=== PATIENT | female | born 1940 | race Caucasian/White ===

== ENCOUNTER 2018-05-30 07:08 | Emergency (ER) | payer MEDICARE, MEDICAID ==
[~2018-05-30] VITALS: Ht 157.5 cm; Wt 69.9 kg
--- OUTSIDE RECORDS SUMMARY | 2018-05-30 07:14 | XMS REPORT | Clinical Summary ---
Author Author Admin, [facility] Organization [facility] Address Unknown Phone Unavailable Allergies, Adverse Reactions, Alerts Allergy Name Reaction Description Start Date Severity Status Provider Allergies Unknown Conditions or Problems Problem Name Problem Code Onset Date Status Entry Date Provider Comment Standard Description Annotate Prolonged QT interval 426.82 Active Krystyna Reyez LPN Long QT syndrome Medication List Medication Instructions Start Date Stop Date Generic Name NDC Status Provider Patient Instruction Drug Treatment Unknown - unknown
--- OUTSIDE RECORDS SUMMARY | 2018-05-30 07:14 | XMS REPORT | Referral Summary ---
Author Author [facility] Organization [facility] Address Unknown Phone Unavailable Encounter VC MARCOS [id number] Date(s): 09/28/17 - 11/15/17 [facility] [address] [place] [address] Discharge Disposition: 01-Home or Self Care Attending Physician: Natahn Multani MD Admitting Physician: Craig Lockhart MD Vital Signs Most recent to 1 oldest [Reference Range]: Temperature Axillary 36.6 degC 1 [35.2-36.7 degC] (11/08/17 12:44 PM) Temperature Oral 36.6 degC [35.8-37.3 degC] (11/15/17 7:50 AM) Temperature Temporal 36.6 degC Artery [36.3-37.8 (10/10/17 11:00 AM) degC] Peripheral Pulse 96 bpm Rate [60-100 bpm] (11/15/17 7:50 AM) Heart Rate Monitored 94 bpm [60-100 bpm] (11/13/17 8:17 AM) Respiratory Rate 18 br/min [14-20 br/min] (11/15/17 7:50 AM) Blood Pressure 134/74 mmHg [90-140/60-90 mmHg] (11/15/17 7:50 AM) Mean Arterial 101 mmHg Pressure, Cuff (11/06/17 7:37 PM) SpO2 98 % (11/15/17 7:50 AM) Remote Telemetry Ongoing (11/11/17 4:46 AM) 1Result Comment: pt. eating ice Problem List Condition Effective Dates Status Health Status Informant Acute Active pain(Confirmed) Alteration in Active nutrition(Confirmed) 1 At risk for Active infection(Confirmed) 2 At risk of pressure Active sore(Confirmed) Bleeding Active precautions(Confirme d)3 Fluid Active imbalance(Confirmed) 4 Impaired gas Active exchange(Confirmed)5 No Chronic Problems Active Tissue perfusion Active alteration(Confirmed )6 1Problem added automatically by system based on initiation of Alteration in Nutrition Plan of Care 2Problem added automatically by system based on initiation of At Risk for Infection in Nutrition Plan of Care 3Problem added automatically by system based on initiation of Bleeding Precautions Plan of Care 4Problem added automatically by system based on initiation of Fluid Volume Imbalance Plan of Care 5Problem added automatically by system based on initiation of Impaired Gas Exchange Plan of Care 6Problem added automatically by system based on initiation of Tissue Perfusion Cerebral Plan of Care Allergies, Adverse Reactions, Alerts Substance Reaction Severity Status penicillin Hives Medium Active Medications enoxaparin 100 mg/mL injectable solution 80 mg, SubCutaneous, q12hr, # 10 Each, 0 Refill(s), Pharmacy: [facility], 80 mg SubCutaneous q12hr Start Date: 11/15/17 Stop Date: 12/16/17 Status: Ordered hydroCHLOROthiazide 12.5 mg oral capsule 12.5 mg 1 caps, Oral, Daily, 0 Refill(s) Start Date: 09/28/17 Status: Ordered Lasix 20 mg oral tablet 20 mg 1 tabs, Oral, Daily, # 30 tabs, 0 Refill(s), Pharmacy: [facility] , 1 tabs Oral Daily Start Date: 11/15/17 Status: Ordered losartan 50 mg oral tablet 50 mg 1 tabs, Oral, Daily, # 30 tabs, 0 Refill(s), Pharmacy: [facility] , 1 tabs Oral Daily Start Date: 11/15/17 Status: Ordered Metoprolol Succinate ER 50 mg oral tablet, extended release 50 mg 1 tabs, Oral, Daily, 0 Refill(s) Start Date: 09/28/17 Status: Ordered simvastatin 20 mg oral tablet 20 mg 1 tabs, Oral, Bedtime (once a day), 0 Refill(s) Start Date: 09/28/17 Status: Ordered warfarin 5 mg oral tablet 5 mg 1 tabs, Oral, Daily, # 30 tabs, 0 Refill(s), Pharmacy: [facility] , 1 tabs Oral Daily Start Date: 11/15/17 Status: Ordered Results Hematology Most recent to 1 oldest [Reference Range]: WBC [4.8-10.8 1.8 10*3/uL 10*3/uL] *LOW* (11/15/17 5:11 AM) RBC [4.00-5.20] 2.71 *LOW* (11/15/17 5:11 AM) Hgb [12.0-16.0 8.7 gm/dL gm/dL] *LOW* (11/15/17 5:11 AM) Hct [37.0-47.0 %] 26.7 % *LOW* (11/15/17 5:11 AM) MCV [82.0-99.0 fL] 98.5 fL (11/15/17 5:11 AM) MCH [27.0-32.0 pg] 32.1 pg *HI* (11/15/17 5:11 AM) MCHC [32.0-36.0 32.6 gm/dL gm/dL] (11/15/17 5:11 AM) RDW [11.5-14.5 %] 26.9 % *HI* (11/15/17 5:11 AM) Platelet [150-400 163 10*3/uL 10*3/uL] (11/15/17 5:11 AM) MPV [9.4-12.4 fL] 10.5 fL (11/15/17 5:11 AM) Immature 0.0 % Granulocytes (11/08/17 5:00 AM) [0.0-1.0 %] Neutrophils [51-75 58 % %] (11/15/17 5:11 AM) Band Man [0-8 %] 6 % (11/13/17 4:48 AM) Industry Man [0-1 %] 1 % (11/12/17 3:55 AM) Myelo Man [-1-0 %] 1 % *HI* (11/15/17 5:11 AM) Promyelo Man [-1-0 1 % %] *HI* (10/10/17 3:51 AM) Lymphocytes [20-46 25 % %] (11/15/17 5:11 AM) Abn Lymph Man 1 % (11/15/17 5:11 AM) Monocytes [4-11 %] 14 % *HI* (11/15/17 5:11 AM) Eosinophils [0-4 %] 2 % (11/15/17 5:11 AM) Basophils [0-2 %] 1 % (11/15/17 5:11 AM) Blasts Man [0-0 %] 1 % 1 *CRIT* (10/14/17 4:11 AM) Neutro Absolute 1.04 [1.90-7.00] *LOW* (11/15/17 5:11 AM) Lymph Absolute 0.47 [0.80-3.30] *LOW* (11/15/17 5:11 AM) Callaway Absolute 0.25 [0.30-1.00] *LOW* (11/15/17 5:11 AM) Eos Absolute 0.04 [0.00-0.50] (11/15/17 5:11 AM) Baso Absolute 0.01 [0.00-0.20] (11/15/17 5:11 AM) Jeaneth Rods Present *ABN* (10/02/17 5:24 AM) Hypochrom Occasional *ABN* (10/22/17 4:37 AM) Polychrom Occasional *ABN* (11/15/17 5:11 AM) Ovalocytes Occasional *ABN* (11/08/17 5:00 AM) Schistocyte Occasional *ABN* (11/02/17 3:37 AM) Nucleated RBC 0.0 /100 WBC Automated [0 /100 (11/15/17 5:11 AM) WBC] Differential Reviewed (11/15/17 5:11 AM) 1Result Comment: Critical Blast result previously reported to floor. 10/14/2017 07:04 Coagulation Most recent to 1 oldest [Reference Range]: INR [0.9-1.2] 1.5 *HI* (11/15/17 5:11 AM) PTT [25.0-35.0 34.9 seconds seconds] (11/12/17 3:55 AM) Fibrinogen Lvl 279 mg/dL [187-520 mg/dL] (11/12/17 3:55 AM) D-Dimer [0-600 1267 ng{FEU}/mL 1 ng{FEU}/mL] *HI* (11/12/17 3:55 AM) 1Result Comment: A D Dimer result of <500 ng/mL FEU has a negative predictive value of approximately 100% for the exclusion of DVT and acute PE. Chemistry Most recent to 1 oldest [Reference Range]: Sodium Lvl [136-144 140 mEq/L mEq/L] (11/15/17 5:11 AM) Potassium Lvl 3.5 mEq/L [3.6-5.1 mEq/L] *LOW* (11/15/17 5:11 AM) Chloride [99-109 105 mEq/L mEq/L] (11/15/17 5:11 AM) CO2 [22-32 mEq/L] 27 mEq/L (11/15/17 5:11 AM) AGAP [3-20 mEq/L] 8 mEq/L (11/15/17 5:11 AM) BUN [4-20 mg/dL] 14 mg/dL (11/15/17 5:11 AM) Glucose Lvl [70-100 114 mg/dL mg/dL] *HI* (11/15/17 5:11 AM) Creatinine Lvl 0.68 mg/dL [0.44-1.03 mg/dL] (11/15/17 5:11 AM) eGFR [>60 mL/min] >60 mL/min 1 (11/15/17 5:11 AM) Calcium Lvl 8.7 mg/dL [8.6-10.0 mg/dL] (11/15/17 5:11 AM) Albumin Lvl [3.5-4.8 3.1 gm/dL gm/dL] *LOW* (11/15/17 5:11 AM) Total Protein 5.5 gm/dL [6.1-7.9 gm/dL] *LOW* (11/15/17 5:11 AM) Globulin [1.9-4.3 2.4 gm/dL gm/dL] (11/15/17 5:11 AM) ALT [14-54 U/L] 70 U/L *HI* (11/15/17 5:11 AM) AST [15-41 U/L] 55 U/L *HI* (11/15/17 5:11 AM) Alk Phos [26-104 168 U/L U/L] *HI* (11/15/17 5:11 AM) Bili Total [0.2-1.2 1.3 mg/dL 2 mg/dL] *HI* (11/15/17 5:11 AM) LDH [98-192 U/L] 279 U/L *HI* (11/01/17 4:05 AM) Magnesium Lvl 1.8 mg/dL [1.8-2.5 mg/dL] (11/12/17 3:55 AM) Uric Acid [2.6-8.0 3.2 mg/dL mg/dL] (10/21/17 4:29 AM) Phosphorus [2.4-4.7 3.4 mg/dL 3 mg/dL] (10/25/17 3:29 AM) BNP [0-99 pg/mL] 2536 pg/mL *HI* (10/10/17 10:16 AM) Troponin [<0.06 0.10 ng/mL 4 ng/mL] *HHI* (10/08/17 1:50 PM) Lipase Lvl [8-48 79 U/L U/L] *HI* (10/16/17 3:55 AM) Lactic Acid Lvl 1.0 mEq/L [0.5-2.0 mEq/L] (10/15/17 9:14 AM) Chol [0-199 mg/dL] 174 mg/dL (10/08/17 5:58 AM) Trig [0-149 mg/dL] 72 mg/dL (10/08/17 5:58 AM) HDL [40-84 mg/dL] 75 mg/dL (10/08/17 5:58 AM) LDL [0-130 mg/dL] 85 mg/dL (10/08/17 5:58 AM) VLDL Cholesterol 14 mg/dL [0-28 mg/dL] (10/08/17 5:58 AM) Cardiac Risk 2.3 [0.0-5.0] (10/08/17 5:58 AM) Procalcitonin 0.19 ng/mL 5 [0.00-0.09 ng/mL] *HI* (10/10/17 10:16 AM) 1Result Comment: Multiply eGFR results by 1.21 for race. 2Result Comment: Naproxen, specifically the metabolite O-desmethylnaproxen, may cause spurious elevation in Total Bilirubin levels. 3Result Comment: High dosages of liposomal Amphotericin B (AmBisome) therapy or other drug preparations that use a liposomal envelope to facilitate drug delivery may cause falsely elevated results for phosphorus. 4Result Comment: Critical value called, and read-back verified. Called to Jaison Aguilar 10/08/2017 15:22 5Result Comment: Normal: <0.1 ng/mL (infants >72 hrs - adults) Suspected Lower Respiratory Tract Infection 0.10-0.25 ng/mL=Low likelihood for bacterial infection; Antibiotics discouraged. >0.25 ng/mL=Increased likelihood for bacterial infection; Antibiotics encouraged. Suspected Sepsis: Strongly consider initiating antibiotics in all unstable patients. 0.10-0.50 ng/mL=Low likelihood for sepsis; Antibiotics discouraged. >0.50 ng/mL=Increased likelihood for sepsis; Antibiotics encouraged. Decisions on antibiotic use should not be based solely on procalcitonin levels. If antibiotics are administered, repeat procalcitonin testing should be obtained every 2-3 days to consider early antibiotic cessation. PCT is a dynamic biomarker and most useful when trends are analyzed over time in accompaniment with other clinical data. Interpretation should be based upon clinical context and algorithms. Urinalysis Most recent to 1 oldest [Reference Range]: UA Color Yellow (09/29/17 4:42 AM) UA Appear Sl Cloudy (09/29/17 4:42 AM) UA pH [5.0-8.0] 5.0 (09/29/17 4:42 AM) UA Leuk Est Pos 1+ [Negative] *ABN* (09/29/17 4:42 AM) UA Nitrite Negative [Negative] (09/29/17 4:42 AM) UA Protein Negative [Negative] (09/29/17 4:42 AM) UA Glucose Negative [Negative] (09/29/17 4:42 AM) UA Ketones Negative [Negative] (09/29/17 4:42 AM) UA Urobilinogen Negative [<1.0] (09/29/17 4:42 AM) UA Bili [Negative] Negative (09/29/17 4:42 AM) UA Blood [Negative] Pos 1+ *ABN* (09/29/17 4:42 AM) UA Spec Grav 1.010 [1.003-1.030] (09/29/17 4:42 AM) Type Lopez (09/29/17 4:42 AM) UA WBC [0-4] 5-10 *ABN* (09/29/17 4:42 AM) UA RBC [0-2] 2-5 (09/29/17 4:42 AM) Epithelial Cells 2-5 (09/29/17 4:42 AM) UA Bacteria Rare (09/29/17 4:42 AM) UA Hyal Cast [0-3] 1-3 (09/29/17 4:42 AM) UA Mucous Present (09/29/17 4:42 AM) U Eos [0-0 %] 0 % (09/29/17 3:50 PM) Blood Bank Results Most recent to 1 oldest [Reference Range]: ABO/Rh O POS (11/08/17 8:55 AM) Antibody Screen Tube NEG (11/08/17 8:55 AM) Transfusion Data Most recent to 1 oldest [Reference Range]: Cryoprecipitate 138 mL Volume Transfused (10/04/17 3:16 PM) Platelets Volume 300 mL Transfused (10/30/17 9:00 AM) Red Blood Cells 274 mL Volume Transfused (11/08/17 1:00 PM) Microbiology Reports TEST: Blood Culture STATUS: Auth (Verified) BODY SITE: SOURCE: Blood COLLECTED DATE/TIME: 10/10/17 10:15 AM Blood Culture No growth after 5 days of incubation. TEST: Blood Culture STATUS: Auth (Verified) BODY SITE: SOURCE: Blood COLLECTED DATE/TIME: 10/10/17 9:45 AM Blood Culture No growth after 5 days of incubation. Immunizations No data available for this section Procedures Procedure Date Related Diagnosis Body Site Status Declotting by thrombolytic agent of implanted 11/12/17 Completed vascular access device or catheter Declotting by thrombolytic agent of implanted 10/05/17 Completed vascular access device or catheter Insertion of peripherally inserted central 09/29/17 Completed venous catheter (PICC), without subcutaneous port or pump; age 5 years or older.. Heart valve replacement Completed Hysterectomy Completed Social History Social History Type Response Smoking Status Former smoker, quit more than 30 days ago; Type: Cigarettes entered on: 09/28/17 Assessment and Plan No data available for this section
--- NOTE | 2018-05-30 07:23 | ED Neurological Problem ---
General Stated Complaint: RT ARM PAIN and weakness Source: patient, family History of Present Illness Date Seen by Provider: May 30, 2018 Time Seen by Provider: 07:11 Severity: moderate Patient woke up at 3 AM and her usual state of health, around 5 AM she noticed difficulty moving her right arm, pain in her right arm, and when she called EMS for help around that time had some difficulty with speech and word finding. She states she's had prior pain in the right shoulder, that has been intermittent and denies any injury or fall. She is on warfarin for a mechanical aortic valve. She has a history of leukemia, and is currently on chemotherapy. Allergies and Home Medications Allergies Coded Allergies: Penicillins (Verified Allergy, Severe, HIVES, 05/30/18) Patient Home Medication List Home Medication List Reviewed: Yes Review of Systems Review of Systems Constitutional: No chills, No dizziness, No fever Eyes: Denies Blindness, Denies Blurred Vision Respiratory: No cough, No short of breath Cardiovascular: No chest pain, No palpitations, No syncope Gastrointestinal: No abdominal pain, No nausea Musculoskeletal: joint pain, muscle weakness Skin: No change in color, No rash Psychiatric/Neurological: See HPI; Denies Headache Hematologic/Lymphatic: See HPI Past Ddwstph-Ddxtva-Mhgamh Hx Past Med/Social Hx: Reviewed and Corrections made Patient Social History Recent Foreign Travel: No Contact w/Someone Who Travel: No Past Medical History Valve Replacement (Aortic valve) Physical Exam Vital Signs Vital Signs - First Documented 05/30/18 07:08 Temp 97.0 Pulse 75 Resp 16 B/P (MAP) 216/75 (122) Pulse Ox 100 O2 Delivery Room Air Capillary Refill : Height, Weight, BMI Height: '" Weight: lbs. oz. kg; BMI Method: General Appearance: mild distress (in pain) HEENT: PERRL/EOMI, normal ENT inspection, TMs normal, pharynx normal Neck: non-tender, normal inspection Respiratory: lungs clear, normal breath sounds, no respiratory distress, no accessory muscle use Cardiovascular: regular rate, rhythm, no edema, no gallop, no JVD, systolic murmur (Mechanical murmur) Gastrointestinal: normal bowel sounds, non tender, soft, no organomegaly, no pulsatile mass Back: no CVA tenderness, no vertebral tenderness Extremities: normal inspection, no pedal edema, no calf tenderness, normal capillary refill, other (Right shoulder pain to palpation. Decreased active and passive range of motion of the right shoulder) Neurologic/Psychiatric: enrollment manager II-XII nml as tested, alert, motor weakness ( Positive right arm weakness in the right shoulder, elbow, and hand/bus transportation manager strength. + word finding difficulty), other (Oriented to name, date, circumstances, uncertain of the year. Normal sensation throughout) Motor/Sensory: pronator drift (R) (And upper extremity); No sensory deficit; weak motor strength RUE Skin: normal color, warm/dry Stroke Onset of Symptoms Date of Onset of Symptoms: May 30, 2018 Time of Symptom Onset: 05:00 NIH Stroke Scale Assessment Select: Initial Level of Consciousness: 0=Alert (0), Level of Consciousness- Questions: 0=Answers both month/age (0), LOC Commands: 0=Performs both tasks (0) , Gaze: Normal (0), Visual Gill: 0=No visual loss (0), Facial Movement ( Facial Paresis): 0=Normal symmetrical mnt (0), Motor Function-Arms Right: 3=No effort/gravity (3), Motor Function-Arms Left: 0=No drift (0), Motor Function- Legs Right: 0=No drift (0), Motor Function-Legs Left: 0=No drift (0), Limb Ataxia: 0=Absent (0), Sensory: 0=Normal:no loss (0), Best Language: 1=Mild to moderat aphasia (1), Dysarthria: 1=Mild to moderate loss (1), Extinction & Inattention: 0=No abnormality (0), Total: 5 Stroke Thrombolytic Exclusion Oral Anticoagulants: Yes (Warfarin) TPA Contraindication: Yes IV - TPa Received IV - TPa Procedure Performed?: No Progress/Results/Core Measures Results/Orders Lab Results Laboratory Tests Test 05/30/18 07:15 Range/Units White Blood Count 6.6 4.3-11.0 10^3/uL Red Blood Count 3.81 L 4.35-5.85 10^6/uL Hemoglobin 12.6 11.5-16.0 G/DL Hematocrit 37 35-52 % Mean Corpuscular Volume 97 80-99 FL Mean Corpuscular Hemoglobin 33 25-34 PG Mean Corpuscular Hemoglobin Concent 34 32-36 G/DL Red Cell Distribution Width 12.1 10.0-14.5 % Platelet Count 288 130-400 10^3/uL Mean Platelet Volume 9.7 7.4-10.4 FL Neutrophils (%) (Auto) 73 42-75 % Lymphocytes (%) (Auto) 19 12-44 % Monocytes (%) (Auto) 7 0-12 % Eosinophils (%) (Auto) 1 0-10 % Basophils (%) (Auto) 1 0-10 % Neutrophils # (Auto) 4.8 1.8-7.8 X 10^3 Lymphocytes # (Auto) 1.2 1.0-4.0 X 10^3 Monocytes # (Auto) 0.4 0.0-1.0 X 10^3 Eosinophils # (Auto) 0.1 0.0-0.3 10^3/uL Basophils # (Auto) 0.0 0.0-0.1 10^3/uL Prothrombin Time 28.5 H 12.2-14.7 SEC INR Comment 2.7 H 0.8-1.4 Activated Partial Thromboplast Time 57 H 24-35 SEC D-Dimer 0.73 H 0.00-0.49 UG/ML Sodium Level 136 135-145 MMOL/L Potassium Level 3.1 L 3.6-5.0 MMOL/L Chloride Level 96 L 98-107 MMOL/L Carbon Dioxide Level 10 L 21-32 MMOL/L Anion Gap 30 H 5-14 MMOL/L Blood Urea Nitrogen 22 H 7-18 MG/DL Creatinine 0.83 0.60-1.30 MG/DL Estimat Glomerular Filtration Rate > 60 BUN/Creatinine Ratio 27 Glucose Level 145 H 70-105 MG/DL Calcium Level 9.7 8.5-10.1 MG/DL Corrected Calcium 9.7 8.5-10.1 MG/DL Total Bilirubin 0.5 0.1-1.0 MG/DL Aspartate Amino Transf (AST/SGOT) 26 5-34 U/L Alanine Aminotransferase (ALT/SGPT) 14 0-55 U/L Alkaline Phosphatase 124 40-136 U/L Troponin T 19 H <=10 NG/L Total Protein 6.8 6.4-8.2 GM/DL Albumin 4.0 3.2-4.5 GM/DL My Orders Orders - NEGRITO FLORES MD Cbc With Automated Diff (05/30/18 07:18) Protime With Inr (05/30/18 07:18) Partial Thromboplastin Time (05/30/18 07:18) Comprehensive Metabolic Panel (05/30/18 07:18) Fibrin Degradation Products (05/30/18 07:18) Ua Culture If Indicated (05/30/18 07:18) Chest 1 View Ap/Pa Only (05/30/18 07:18) Ekg Tracing (05/30/18 07:18) Nothing By Mouth (05/30/18 Lunch) Accucheck Stat ONCE (05/30/18 07:18) Saline Lock/Iv-Start (05/30/18 07:18) Saline Lock/Iv-Start (05/30/18 07:18) Vital Signs Stroke Patient Q15M (05/30/18 07:18) Ct Head Wo-R/O Stroke (05/30/18 07:18) O2 (05/30/18 07:18) Intake & Output 06,14,22 (05/30/18 07:18) Labetalol Injection (Normodyne Injection (05/30/18 07:30) Monitor-Rhythm Ecg Trace Only (05/30/18 07:18) Dysphagia Screening Tool (05/30/18 07:18) Lipid Panel (05/31/18 06:00) Fentanyl Injection (Sublimaze Injection (05/30/18 07:30) Shoulder 3 View Right (05/30/18 07:30) Morphine Injection (Morphine Injection (05/30/18 08:03) Morphine Injection (Morphine Injection (05/30/18 08:08) Labetalol Injection (Normodyne Injection (05/30/18 08:30) Morphine Injection (Morphine Injection (05/30/18 08:27) Medications Given in ED Current Medications Medications Dose Ordered Sig/Joseph Route Start Time Stop Time Status Last Admin Dose Admin Fentanyl Citrate 25 mcg Q1H PRN IVP 05/30/18 07:30 05/30/18 08:05 DC 05/30/18 07:28 25 MCG Labetalol HCl 10 mg PRN PRN IV 05/30/18 07:30 05/30/18 07:58 10 MG Labetalol HCl 20 mg ONCE ONCE IV 05/30/18 08:30 05/30/18 08:31 DC 05/30/18 08:40 20 MG Vital Signs/I&O 05/30/18 07:08 Temp 97.0 Pulse 75 Resp 16 B/P (MAP) 216/75 (122) Pulse Ox 100 O2 Delivery Room Air Initial ECG Impression Date: May 30, 2018 Initial ECG Impression Time: 08:09 Initial ECG Rate: 70 Initial ECG Rhythm: S.Mazin (With first-degree AV block) Initial ECG Intervals: ME (Prolonged 184 ms) Initial ECG Impression: Sinus Bradycardia, 1st Degree AV Block Initial ECG Comparisson: No Previous ECG Available Comment Left axis deviation, poor R to R progression Diagnostic Imaging Diagonstic Imaging: Xray Plain Films/CT/US/NM/MRI: chest Comments Chest x-ray dated 07/16/18 0731 hrs. prior sternotomy mechanical aortic valve right-sided port no obvious infiltrates no acute process. Reviewed: Reviewed by Me Diagonstic Imaging: Xray Plain Films/CT/US/NM/MRI: other (Right shoulder) Comments possible subluxation vs psuedosubluxation, lucency in glenoid rim may be occult fx, recommend CT for further eval. No lytic or blastic lesions. Reviewed: Reviewed/Discussed CVA/SNYCOPE: ECG, Tpa Considered (Excluded due to warfarin) Critical Care Note Critical Care Total Time (minutes) 60 Progress Critical care time spent by me at the bedside evaluating NIH, directing care, review of EKG review of images, discussion with accepting physician. Ms. Gordon is a constant risk for deterioration of condition including permanent disability and/or from possible acute ischemic CVA. She is on warfarin and is not a candidate for TPA due to this. Her last known well was 5 AM, she has some exam findings concerning for left MCA distribution ischemic stroke. I discussed her care with Dr. Jeffrey at [facility] recommends transfer to the [facility] for CT angiogram perfusion brain and further evaluation, okay to keep blood pressure between 180 and 220. Departure Impression Primary Impression: Cerebrovascular accident due to cerebral artery occlusion Disposition: XFER SHT-TRM HOSP Condition: Unchanged Transfer Time Spoke to Accepting Phy: 08:45 Transfer Progress Notes Discussed with Dr. Santana the transferring physician and Dr. Jeffrey the neurologist at [facility]. Patient is accepted to the [facility] emergency department, where she will undergo further assessment. Okay to keep blood pressure 180-220 Transfer Facility: [facility] ([facility]) Method of Transfer: Air Departure-Patient Inst. Referrals: JAZLYN HERNÁNDEZ MD (PCP/Family) Primary Care Physician NEGRITO FLORES MD May 30, 2018 07:23
[2018-05-30 07:29] LABS: HEMATOCRIT 37 % (35-52); HEMOGLOBIN 12.6 G/DL (11.5-16.0); MEAN CORPUSCULAR HEMOGLOBIN 33 PG (25-34); MEAN CORPUSCULAR HGB CONC 34 G/DL (32-36); MEAN CORPUSCULAR VOLUME 97 FL (80-99); WHITE BLOOD COUNT 6.6 10^3/uL (4.3-11.0)
[2018-05-30 07:30] LABS: BASOPHILS % (AUTO) 1 % (0-10); EOSINOPHILS # (AUTO) 0.1 10^3/uL (0.0-0.3); EOSINOPHILS % (AUTO) 1 % (0-10); LYMPHOCYTES # (AUTO) 1.2 X 10^3 (1.0-4.0); LYMPHOCYTES % (AUTO) 19 % (12-44); MEAN PLATELET VOLUME 9.7 FL (7.4-10.4); MONOCYTES # (AUTO) 0.4 X 10^3 (0.0-1.0); MONOCYTES % (AUTO) 7 % (0-12); NEUTROPHILS # (AUTO) 4.8 X 10^3 (1.8-7.8); NEUTROPHILS % (AUTO) 73 % (42-75); PLATELET COUNT 288 10^3/uL (130-400); RED CELL DISTRIBUTION WIDTH 12.1 % (10.0-14.5)
[2018-05-30] MEDS ORDERED: fentaNYL INJECTION 100 MCG/2 ML AMP IVP PRN (07:30)
[2018-05-30] MEDS ORDERED: LABETALOL HCL 20 MG/4 ML VIAL IV PRN (07:30)
[2018-05-30] MEDS ORDERED: WARF1TAB82 (07:40)
[2018-05-30] MEDS ORDERED: SIMV20TA3 (07:40)
[2018-05-30] MEDS ORDERED: FURO20TA4 (07:40)
[2018-05-30] MEDS ORDERED: TRET10CA2 (07:40)
[2018-05-30] MEDS ORDERED: LOSA100T57 (07:40)
[2018-05-30 07:48] LABS: ALANINE AMINOTRANSFERASE 14 U/L (0-55); ALKALINE PHOSPHATASE 124 U/L (40-136); BILIRUBIN,TOTAL 0.5 MG/DL (0.1-1.0); BUN/CREATININE RATIO 27; CALCIUM 9.7 MG/DL (8.5-10.1); CARBON DIOXIDE 10 MMOL/L (21-32); CHLORIDE 96 MMOL/L (98-107); CREATININE SERUM 0.83 MG/DL (0.60-1.30); GFR ESTIMATED > 60; GLUCOSE 145 MG/DL (70-105); POTASSIUM 3.1 MMOL/L (3.6-5.0); SODIUM 136 MMOL/L (135-145); TOTAL PROTEIN 6.8 GM/DL (6.4-8.2)
[2018-05-30 07:51] LABS: PROTHROMBIN TIME PATIENT 28.5 SEC (12.2-14.7)
[2018-05-30 07:52] LABS: FIBRIN DEGRADATION PRODUCTS 0.73 UG/ML (0.00-0.49); INR 2.7 (0.8-1.4)
[2018-05-30] MEDS ORDERED: morphine INJ 10 MG/ML 1ML (SYR OR VIAL) IVP STA ×2 (08:03→08:27)
[2018-05-30] MEDS ORDERED: morphine INJ 10 MG/ML 1ML (SYR OR VIAL) ONE (08:08)
--- NOTE | 2018-05-30 08:25 | NUR ---
DR IN ROOM WITH PT AT THIS TIME.
[2018-05-30] MEDS ORDERED: LABETALOL HCL 20 MG/4 ML VIAL IV ONE (08:30)
--- NOTE | 2018-05-30 08:34 | NUR ---
CHESTER PLACED ON STANDBY BY Brenden CANTRELL
--- NOTE | 2018-05-30 08:34 | Diagnostic Imaging Report ---
CLINICAL INDICATION: Patient with shoulder pain started out of nowhere this morning. Rule out stroke. EXAM: Axial CT scan of brain performed without IV contrast. COMPARISON: None. FINDINGS: There is no evidence of acute cerebral infarct, intracranial hemorrhage, or gross mass effect. The brain parenchymal volume appears appropriate for patient's age. There is mild focal and patchy areas of low-attenuation white matter changes involving both cerebral hemispheres, likely representing chronic small vessel ischemic disease and mild leukoaraiosis. There are small focal calcifications scattered about both cerebral hemispheres which may be from remote infectious or inflammatory process. There is normal ponce-white matter distinction. There is no significant midline shift or herniation. There is no evidence of hydrocephalus. The basal cisterns are unremarkable. The skull, extracranial soft tissue, and orbits are unremarkable. The paranasal sinuses are unremarkable. Temporal bones show no significant abnormality. IMPRESSION: 1: There is no radiographic evidence of acute cardiopulmonary process. If there is continued concern for acute cerebral infarct, then MRI of the brain would better evaluate. 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 Results of this report was discussed with Dr. Sergey Alvarenga via the telephone on 05/30/2018 at 0820 hours. Dictated by: Dictated on workstation # [id number]
--- NOTE | 2018-05-30 08:34 | NUR ---
MED FLIGHT PUT ON STANDBY.
--- NOTE | 2018-05-30 08:39 | Diagnostic Imaging Report ---
CLINICAL INDICATION: Patient playing card game this morning and shoulder started hurting. EXAM: Portable chest x-ray, upright view. COMPARISON: Portable chest x-ray dated 10/12/2017. X-ray of the right shoulder dated 05/30/2018. FINDINGS: There is interval inferior displacement of the right humeral head in relationship to the glenoid of unknown etiology. There are degenerative spurs involving the thoracic spine. The lungs are clear and stable compared to the prior study. There is no pleural effusion or pneumothorax. The pulmonary vasculature and cardiac silhouette are within normal limits. Again seen are postop changes with sternotomy wires and valvuloplasty changes seen. Interval placement of a central line overlying the right chest with the tip in the mid to distal superior vena cava. The previously seen right PICC line has been removed. IMPRESSION: 1. There is interval inferior displacement of the right humeral head in relationship to the glenoid. This may be related to subluxation or dislocation of the right glenohumeral joint or a right joint effusion. 2. Interval removal of the previously seen right PICC line with placement of a right central line. 3. The remainder of the chest x-ray exam is stable with no evidence of an acute cardiopulmonary process. 4. The results of this report were discussed with Dr. Sergey Alvarenga via the telephone on 05/30/2018 at 0830 hours. Dictated by: Dictated on workstation # [id number]
--- NOTE | 2018-05-30 08:45 | NUR ---
MED FLIGHT STANDBY CANCELLED
--- NOTE | 2018-05-30 08:51 | NUR ---
[facility] CONTACTED TO HAVE LAUNCHED.
--- NOTE | 2018-05-30 09:00 | NUR ---
UPON TELLING PT SHE WAS GOING BY [facility] SHE STATES SHE WAS HAVING CHEST PRESSURE. DR FLORES NOTIFIED.
--- NOTE | 2018-05-30 09:12 | NUR ---
PT STATES BY LOWERING HER BED IT MADE THE PAIN IN HER CHEST SLIGHTLY BETTER.
--- NOTE | 2018-05-30 09:14 | NUR ---
[facility] CALLED BACK ET STATES THEY WILL BE HERE IN 25 MINUTES. NOTIFIED.
[2018-05-30 09:15] LABS: BILIRUBIN,URINE NEGATIVE (NEGATIVE); CLARITY,URINE CLEAR; COLOR,URINE YELLOW; GLUCOSE, URINE (UA) NEGATIVE (NEGATIVE); KETONES,URINE NEGATIVE (NEGATIVE); LEUKOCYTE ESTERASE ,URINE NEGATIVE (NEGATIVE); NITRITE,URINE NEGATIVE (NEGATIVE); PROTEIN,URINE NEGATIVE (NEGATIVE); UROBILINOGEN,URINE 0.2 MG/DL (NORMAL)
[2018-05-30 09:16] LABS: SQUAMOUS EPITHELIAL CELL,UR 0-2 /HPF
--- NOTE | 2018-05-30 09:22 | Diagnostic Imaging Report ---
Clinical indication: Patient with shoulder pain. No known injury. Exam: X-ray of the right shoulder, 3 views including scapular Y view. Comparison: Chest x-ray dated 10/12/2017. Findings: There is interval inferior subluxation of the right humeral head in relation to the right glenoid which shows no significant displacement anteriorly or posteriorly. There is also an area of irregular calcification seen lateral to the region of the glenoid on the AP view which may represent a fracture fragment versus excrescent calcification. There are degenerative spurs involving the proximal humeral head/neck junction region. There is moderately hypertrophic subacromial spurs and degenerative spurring of the right acromioclavicular joint. There is degenerative spurs involving the thoracic spine. Partially visualized central line and sternotomy wires are seen. Impression: 1: There is interval inferior position of the right humeral head in relation to the glenoid with no significant humeral head displacement anteriorly or posteriorly. This may represent subluxation of the glenohumeral joint versus pseudosubluxation from a joint effusion. 2: There is a calcification seen lateral to the right glenoid on the AP view. This may represent a fracture fragment or bony excrescence. CT scan of the right shoulder is suggested for further evaluation. 3: Degenerative disease of the right shoulder. Results of this report were discussed with Dr. Sergey Alvarenga via the telephone on 05/30/2018 at 0830 hrs. Dictated by: Dictated on workstation # [id number]
--- NOTE | 2018-05-30 09:48 | NUR ---
[facility] HERE.
[2018-05-30 10:00] VITALS: BP 212/91
== END 2018-05-30 10:00 | disposition short-term general hospital (02) ==
LOC: EDUNIT# 07:08 → ER FS 07:10
DX: I63.50 Cerebral infarction due to unspecified occlusion or stenosis of unspecified cerebral artery (principal); C95.00 Acute leukemia of unspecified cell type not having achieved remission; Z88.0 Allergy status to penicillin; Z92.21 Personal history of antineoplastic chemotherapy; Z95.2 Presence of prosthetic heart valve
CPT/HCPCS: 36415; 70450; 71045; 73030; 80053; 81000; 84484; 85025; 85379; 85610; 85730; 93005; 93041

== ENCOUNTER → 2018-08-18 | Outpatient (CLI) | payer MEDICARE, MEDICAID ==
[~2018-08-18] MED LIST: FURO20TA4; LOSA100T57; SIMV20TA3; TRET10CA2; WARF1TAB82
[2018-08-18 11:14] LABS: HEMATOCRIT 35 % (35-52); HEMOGLOBIN 11.6 G/DL (11.5-16.0); MEAN CORPUSCULAR HEMOGLOBIN 32 PG (25-34); MEAN CORPUSCULAR HGB CONC 33 G/DL (32-36); MEAN CORPUSCULAR VOLUME 99 FL (80-99); PLATELET COUNT 191 10^3/uL (130-400); PROTHROMBIN TIME PATIENT 23.7 SEC (12.2-14.7); WHITE BLOOD COUNT 4.6 10^3/uL (4.3-11.0)
[2018-08-18 11:15] LABS: MEAN PLATELET VOLUME 10.1 FL (7.4-10.4)
[2018-08-18 11:16] LABS: BASOPHILS % (AUTO) 0 % (0-10); EOSINOPHILS # (AUTO) 0.1 10^3/uL (0.0-0.3); EOSINOPHILS % (AUTO) 3 % (0-10); LYMPHOCYTES # (AUTO) 0.9 X 10^3 (1.0-4.0); LYMPHOCYTES % (AUTO) 19 % (12-44); MONOCYTES # (AUTO) 0.3 X 10^3 (0.0-1.0); MONOCYTES % (AUTO) 7 % (0-12); NEUTROPHILS # (AUTO) 3.2 X 10^3 (1.8-7.8); NEUTROPHILS % (AUTO) 71 % (42-75)
== END ==
LOC: LAB FS 09:21
PROVIDERS: ATTEND Internal Medicine Hematology & Oncology
DX: C92.41 Acute promyelocytic leukemia, in remission (principal); Z95.2 Presence of prosthetic heart valve
CPT/HCPCS: 36415; 85025; 85610

== ENCOUNTER 2019-02-16 13:23 | Outpatient (RCR) | payer MEDICARE, MEDICAID ==
[2018-11-24 12:01] LABS: INR 2.5 (0.8-1.4); PROTHROMBIN TIME PATIENT 28.3 SEC (12.2-14.7)
[2019-01-06 09:02] LABS: INR 3.2 (0.8-1.4)
[2019-02-16 14:15] LABS: INR 2.5 (0.8-1.4); PROTHROMBIN TIME PATIENT 27.7 SEC (12.2-14.7)
== END 2019-02-22 | disposition home or self-care (01) ==
LOC: LAB FS 13:23
PROVIDERS: ATTEND Pediatrics
DX: Z95.2 Presence of prosthetic heart valve (principal)
CPT/HCPCS: 36415; 85610

== ENCOUNTER → 2019-03-06 | Outpatient (CLI) | payer MEDICARE, MEDICAID ==
[~2019-03-06] MED LIST changes: +SIMV20TA26; -SIMV20TA3
[2019-03-06 09:46] LABS: HEMATOCRIT 38 % (35-52); HEMOGLOBIN 12.3 G/DL (11.5-16.0); MEAN CORPUSCULAR HEMOGLOBIN 32 PG (25-34); WHITE BLOOD COUNT 3.4 10^3/uL (4.3-11.0)
[2019-03-06 09:47] LABS: BASOPHILS % (AUTO) 1 % (0-10); EOSINOPHILS # (AUTO) 0.2 10^3/uL (0.0-0.3); EOSINOPHILS % (AUTO) 7 % (0-10); LYMPHOCYTES % (AUTO) 30 % (12-44); MEAN CORPUSCULAR HGB CONC 33 G/DL (32-36); MEAN CORPUSCULAR VOLUME 100 FL (80-99); MEAN PLATELET VOLUME 9.3 FL (7.4-10.4); MONOCYTES # (AUTO) 0.3 X 10^3 (0.0-1.0); MONOCYTES % (AUTO) 8 % (0-12); NEUTROPHILS # (AUTO) 1.8 X 10^3 (1.8-7.8); NEUTROPHILS % (AUTO) 53 % (42-75); PLATELET COUNT 216 10^3/uL (130-400); RED CELL DISTRIBUTION WIDTH 12.4 % (10.0-14.5)
[2019-03-06 09:53] LABS: BILIRUBIN,TOTAL 0.2 MG/DL (0.1-1.0); CALCIUM 9.1 MG/DL (8.5-10.1); CREATININE SERUM 1.66 MG/DL (0.60-1.30); POTASSIUM 3.9 MMOL/L (3.6-5.0)
[2019-03-06 09:54] LABS: ALBUMIN 3.6 GM/DL (3.2-4.5); TOTAL PROTEIN 6.5 GM/DL (6.4-8.2)
== END ==
LOC: LAB FS 08:59
PROVIDERS: ATTEND Internal Medicine Hematology & Oncology
DX: C92.41 Acute promyelocytic leukemia, in remission (principal)
CPT/HCPCS: 36415; 80053; 83615; 85025

== ENCOUNTER → 2019-05-01 | Outpatient (CLI) | payer MEDICARE, MEDICAID ==
[2019-05-01 10:42] LABS: BILIRUBIN,TOTAL 0.4 MG/DL (0.1-1.0); BUN/CREATININE RATIO 21; CALCIUM 9.4 MG/DL (8.5-10.1); CARBON DIOXIDE 29 MMOL/L (21-32); CHLORIDE 99 MMOL/L (98-107); CREATININE SERUM 0.78 MG/DL (0.60-1.30); GFR ESTIMATED > 60; GLUCOSE 93 MG/DL (70-105); POTASSIUM 3.7 MMOL/L (3.6-5.0); SODIUM 137 MMOL/L (135-145)
[2019-05-01 10:43] LABS: ALANINE AMINOTRANSFERASE 15 U/L (0-55); ALKALINE PHOSPHATASE 110 U/L (40-136); HEMATOCRIT 39 % (35-52); HEMOGLOBIN 12.7 G/DL (11.5-16.0); MEAN CORPUSCULAR HEMOGLOBIN 32 PG (25-34); MEAN CORPUSCULAR HGB CONC 33 G/DL (32-36); MEAN CORPUSCULAR VOLUME 97 FL (80-99); TOTAL PROTEIN 6.3 GM/DL (6.4-8.2); WHITE BLOOD COUNT 4.7 10^3/uL (4.3-11.0)
[2019-05-01 10:44] LABS: BASOPHILS % (AUTO) 1 % (0-10); EOSINOPHILS # (AUTO) 0.2 10^3/uL (0.0-0.3); EOSINOPHILS % (AUTO) 4 % (0-10); LYMPHOCYTES # (AUTO) 1.1 X 10^3 (1.0-4.0); LYMPHOCYTES % (AUTO) 23 % (12-44); MEAN PLATELET VOLUME 9.3 FL (7.4-10.4); MONOCYTES # (AUTO) 0.3 X 10^3 (0.0-1.0); MONOCYTES % (AUTO) 7 % (0-12); NEUTROPHILS # (AUTO) 3.1 X 10^3 (1.8-7.8); NEUTROPHILS % (AUTO) 65 % (42-75); PLATELET COUNT 221 10^3/uL (130-400); RED CELL DISTRIBUTION WIDTH 12.6 % (10.0-14.5)
== END ==
LOC: LAB FS 08:51
PROVIDERS: ATTEND Internal Medicine Hematology & Oncology
DX: C92.41 Acute promyelocytic leukemia, in remission (principal)
CPT/HCPCS: 36415; 80053; 83615; 85025

== ENCOUNTER 2019-05-29 08:32 | Outpatient (RCR) | payer MEDICARE, MEDICAID ==
[2019-03-06 10:02] LABS: PROTHROMBIN TIME PATIENT 32.2 SEC (12.2-14.7)
[2019-04-06 09:58] LABS: PROTHROMBIN TIME PATIENT 23.2 SEC (12.2-14.7)
[2019-05-01 10:46] LABS: INR 2.7 (0.8-1.4); PROTHROMBIN TIME PATIENT 29.9 SEC (12.2-14.7)
[2019-05-29 09:02] LABS: INR 1.9 (0.8-1.4); PROTHROMBIN TIME PATIENT 22.9 SEC (12.2-14.7)
== END 2019-06-04 | disposition home or self-care (01) ==
LOC: LAB FS 08:32
PROVIDERS: ATTEND Pediatrics
DX: Z95.2 Presence of prosthetic heart valve (principal)
CPT/HCPCS: 36415; 85610